=== PATIENT | female | born 1970 | race Caucasian/White ===

== ENCOUNTER 2016-11-23 10:28 | Inpatient (IN) | payer OTHER ==
--- NOTE | 2016-11-23 11:20 | EDPHY ---
H & P Stated Complaint: Sent by therapist:took 4 Valium last night to "numb myself" - Personal History LMP (Females 10-55): 1-7 Days Ago Current Tetanus Diphtheria and Acellular Pertussis (TDAP): Yes - Medical/Surgical History Hx Asthma: No Hx Chronic Respiratory Disease: No Hx Diabetes: No Hx Cardiac Disease: No Hx Renal Disease: No Hx Cirrhosis: No Hx Alcoholism: No Hx HIV/AIDS: No Hx Splenectomy or Spleen Trauma: No Other PMH: Anxiety, Depression, Anemia, Pneumothorax. Surgeries: chest tube right - Social History Smoking Status: Never smoked Time Seen by Provider: 11/23/16 10:41 HPI/ROS: CHIEF COMPLAINT: "Feeling depressed" HISTORY OF PRESENT ILLNESS: 45-year-old female history of depression anxiety disorder, remote history of suicidal attempt at age 18, arrives voluntarily to the emergency department via walking, states that last night she took for Valium tablets and drank alcohol "in order to numb the pain". This was not a suicide attempt. States that she received bad news yesterday has been experiencing increased anxiety and depression however she adamantly denies current or recent suicidal or homicidal ideation. She called her therapist this morning recommend she go to the ER for evaluation. No abdominal pain. No nausea or vomiting. No physical trauma. REVIEW OF SYSTEMS: A ten point review of systems was performed and is negative with the exception of the items mentioned in the HPI PAST MEDICAL & SURGICAL HISTORY: depression. Anxiety disorder. Hair pulling disorder. SOCIAL HISTORY:positive alcohol use last evening PHYSICAL EXAM (Prior to examination, patient consented to physical exam, hands were washed and my usual and customary physical exam procedures followed) 1) GENERAL: Well-developed, well-nourished, alert and oriented. Appears anxious . 2) HEAD: Normocephalic, atraumatic 3) HEENT: Pupils equal, round, reactive to light bilaterally. Sclera anicteric. 4) NECK: Full range of motion, no meningeal signs. 5) LUNGS: Clear auscultation bilaterally, no wheezes, no rhonchi, no retractions. 6) HEART: Regular rate and rhythm, no murmur, no heave, no gallop. 7) ABDOMEN: No guarding, no rebound, no focal tenderness, 8) MUSCULOSKELETAL: No peripheral edema or discoloration. 9) BACK: no visual or palpable abnormality. 10) SKIN: No rash, no petechiae. DIFFERENTIAL DIAGNOSIS: In no particular include but limited to suicidal ideation, homicidal ideation, depression, anxiety (Samson Hurtado) Constitutional: Initial Vital Signs Temperature (C) 36.8 C 11/23/16 10:29 Heart Rate 86 11/23/16 10:29 Respiratory Rate 18 11/23/16 10:29 Blood Pressure 156/107 H 11/23/16 10:29 O2 Sat (%) 97 11/23/16 10:29 O2 Delivery Mode Room Air Allergies/Adverse Reactions: amoxicillin Allergy (Mild, Verified 11/23/16 10:33) GI upset Home Medications: Medication Instructions Recorded Effexor Xr 225mg Tablet 225 mg PO HS 11/23/16 buPROPion XL [Wellbutrin Xl] 150 mg PO HS 11/23/16 lamOTRIGine [Lamotrigine] 200 mg PO HS 11/23/16 Medical Decision Making ED Course/Re-evaluation: 5:00 p.m.: Care turned over to Dr. Jostin Ibanez. Mental health elementary reading specialist currently evaluating patient (Samson Hurtado) 6:20 p.m. the patient has been accepted by [address] [facility]. They request that she has a small dose of metoprolol prior to transfer. Transfer paperwork completed (Jostin Ibanez) This patient was initially evaluated and managed by the physician computer lab assistant. I agree with the plan of care. I am the secondary supervising physician. (Mariely Villalta) - Data Points Laboratory Results: Laboratory Results 11/23/16 11:00 11/23/16 11:00 Medications Given: Discontinued Medications Metoprolol Succinate (Toprol Xl) 25 mg PO EDNOW ONE Stop: 11/23/16 18:24 Last Admin: 11/23/16 18:30 Dose: 25 mg Departure - Departure Disposition: [facility] IP Clinical Impression: Depression Qualifiers: Depression Type: other depression Qualified Code(s): F32.89 - Other specified depressive episodes Condition: Good
[2016-11-23 11:30] LABS: % IMMATURE GRANULYOCYTES 0.4 % (0.0-1.1); ABSOLUTE IMMATURE GRANULOCYTES 0.02 10^3/uL (0.00-0.10); ADD DIFF? NO; ADD MORPH? NO; ADD SCAN? NO; ATYPICAL LYMPHOCYTE FLAG 10 (0-99); FRAGMENT RBC FLAG 0 (0-99); HEMATOCRIT 39.3 % (38.0-47.0); HEMOGLOBIN 12.9 g/dL (12.6-16.3); LEFT SHIFT FLG 0 (0-99); LIPEMIA HEMOLYSIS FLAG 80 (0-99); MEAN CELL HEMOGLOBIN 27.9 pg (27.9-34.1); MEAN CELL HEMOGLOBIN CONCENTR. 32.8 g/dL (32.4-36.7); MEAN CELL VOLUME 85.1 fL (81.5-99.8); MEAN PLATELET VOLUME 12.1 fL (8.7-11.7); PLATELET CLUMPS FLAG 0 (0-99); PLATELET COUNT 183 10^3/uL (150-400); RED BLOOD CELL COUNT 4.62 10^6/uL (4.18-5.33); RED CELL DISTRIBUTION WIDTH 14.8 % (11.5-15.2)
[2016-11-23 11:33] LABS: ANION GAP 13 mEq/L (8-16); CALCIUM 9.7 mg/dL (8.5-10.4); CARBON DIOXIDE 20 mEq/l (22-31); CHLORIDE 111 mEq/L (97-110); CREATININE 0.8 mg/dL (0.6-1.0); ETHANOL SERUM < 10 mg/dL (0-10); GLOMERULAR FILTRATION RATE > 60; GLUCOSE 90 mg/dL (70-100); POTASSIUM 4.5 mEq/L (3.5-5.2); SALICYLATE < 1.0 mg/dL (2.0-20.0); SODIUM 144 mEq/L (134-144)
[2016-11-23] MEDS ORDERED: METOPROLOL SUCCINATE XR 25 MG TAB PO ONE (18:23)
[2016-11-23] MEDS ORDERED: NICOTINE POLACRILEX 2 MG GUM B PRN (21:03)
[2016-11-23] MEDS ORDERED: MAGNESIUM HYDROXIDE 30 ML UDCUP PO PRN (21:03)
[2016-11-23] MEDS ORDERED: ACETAMINOPHEN 325 MG TAB PO PRN (21:03)
[2016-11-23] MEDS ORDERED: MAG HYDROX/AL HYDROX/SIMETH 30 ML UDCUP PO PRN (21:03)
[2016-11-23] MEDS: VENLAFAXINE XR 75 MG CAP PO SCH (21:46)
[2016-11-23] MEDS: lamoTRIgine 100 MG TAB PO SCH (21:46)
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
[2016-11-24] MEDS ORDERED: PROMETHAZINE HCL 25 MG SUPPR PR PRN (14:32)
[2016-11-24] MEDS ORDERED: chlordiazePOXIDE 25 MG CAP PO PRN (14:32)
[2016-11-24] MEDS ORDERED: PROMETHAZINE HCL 25 MG TAB PO PRN (14:32)
[2016-11-24] MEDS ORDERED: THIAMINE HCL 100 MG TAB PO ONE (14:32)
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
[2016-11-24] MEDS: lamoTRIgine 100 MG TAB PO SCH (20:57)
[2016-11-24] MEDS: VENLAFAXINE XR 75 MG CAP PO SCH (20:58)
[2016-11-24] MEDS: buPROPion XL 150 MG TAB PO SCH (20:58)
[2016-11-24] MEDS ORDERED: lamoTRIgine 100 MG TAB PO SCH (21:00)
[2016-11-24] MEDS ORDERED: NON-FORMULARY NEW DRUG (Lamotrigine [Lamotrigine] 200 MG) PO SCH (21:00)
[2016-11-24] MEDS ORDERED: EFFEXOR 225 MG PO SCH (21:00)
[2016-11-24] MEDS ORDERED: VENLAFAXINE XR 75 MG CAP PO SCH (21:00)
--- NOTE | 2016-11-25 12:57 | SOAPPROG ---
SOAP Progress Note Assessment/Plan: Assessment: 11/25/16 12:48 Plan: 1. CCM - patient denies depression, denies SI/HI 2. Patient agrees to contact Dr. Kavitha Tolliver' office for a f/u appt. 3. Patient is interested in attending MH-IOP at [facility] outpatient clinic. She has an intake appt on 12/03/16 4. MD explained the importance of treating her alcohol use disorder, and suggested patient work with CAC on her addiction issues. She agreed. 5. Likely to d/c tomorrow if aftercare plan is finalized. Subjective: Met with patient and discussed with staff. Patient says she is feeling more "hopeful" and optimistic about her future. She spoke to her outpatient therapist last night. She says her therapist recommended DBT groups and said it was more important to focus on this than her alcohol use. MD explained that her alcohol use disorder was a primary contributor to her chronic low mood and made it more likely for her to feel hopeless and have thoughts of suicide. MD also explained that alcohol significantly impaired her judgment and lowered her inhibitions, therefore making it more likely for her to act on her suicidal thoughts. Therefore, MD recommended that treating her alcohol use disorder was of paramount importance in addition to whatever other treatment she participated in to improve her ability to feel better and function more effectively. MD stressed that you can't treat one (depression) without treating the other (substance use disorder). Patient said she understood. She also admitted she had minimized her alcohol use to both her psych MD and her therapist. MD went into detail about how alcohol interacts with psychotropic medications and the potential adverse effects from combining alcohol with prescription medications. MD also mentioned the effect of alcohol of the liver which decreases the liver's capacity to metabolism prescription meds. Patient said she would discuss these issues with her psych MD and be more forthcoming about her alcohol dependence. Patient denied any thoughts, plan or intent to harm herself or anyone else. Objective: Vital Signs Temp Pulse Resp BP Pulse Ox 36.4 C 81 14 117/81 H 99 11/25/16 06:15 11/25/16 06:15 11/25/16 06:15 11/25/16 06:15 11/25/16 06:15 MSE: Wearing street clothes, appropriately groomed. Affect: Euthymic Mood: "Good " TP: Linear, goal-directed TC: Denies AH/VH, no evidence of psychosis, denies SI/HI - Time Spent With Patient Time Spent With Patient: 25" - Pending Discharge Pending Discharge Within 24 Hours: Yes Pending Discharge Date: 11/26/16 (Patient needs to make f/u appt wtih Dr. Tolliver. CC is working on referral for CAC and intake for IOP.) Pending Discharge Time: 12:00 ICD10 Worksheet Patient Problems: Problems Problem Status Onset Alcohol use disorder, severe, dependence Acute Depression Acute - ICD10 Problem Qualifiers (1) Alcohol use disorder, severe, dependence
[2016-11-25 13:27] VITALS: O2SAT 97
[2016-11-25] MEDS: THIAMINE HCL 100 MG TAB PO SCH (16:34)
[2016-11-25] MEDS: MULTIVITAMINS 1 EACH TAB PO SCH (16:34)
[2016-11-25] MEDS: FOLIC ACID 1 MG TAB PO SCH (16:34)
[2016-11-25] MEDS: LORazepam 0.5 MG TAB PO PRN (17:13)
[2016-11-25] MEDS: buPROPion XL 150 MG TAB PO SCH (21:37)
[2016-11-25] MEDS: VENLAFAXINE XR 75 MG CAP PO SCH (21:37)
[2016-11-25] MEDS: lamoTRIgine 100 MG TAB PO SCH (21:37)
[2016-11-26] MEDS: LORazepam 0.5 MG TAB PO PRN (03:28)
[2016-11-26 08:48] VITALS: BP 133/89; PULSE 97; RESP 12; TEMP 97.8
[2016-11-26] MEDS: MULTIVITAMINS 1 EACH TAB PO SCH (09:41)
[2016-11-26] MEDS: THIAMINE HCL 100 MG TAB PO SCH (09:41)
[2016-11-26] MEDS: FOLIC ACID 1 MG TAB PO SCH (09:41)
--- NOTE | 2016-11-26 14:05 | BDS ---
[f rep st] BEHAVIORAL HEALTH DISCHARGE SUMMARY REASON FOR ADMISSION: This is a 45-year-old female who presented to [facility] ED per recommendation of her therapist, Kristie Yo. Therapist said she told the client to call her i f she was ever feeling suicidal. Per the therapist, the patient sent her a text in the middle of night on 11/22 saying she was thinking of killing herself. Therapist called the patient on 11/23 after seeing the text and recommended the patient go to the hospital for an evaluation. The patient says she was upset about an interaction with her sister. She received a text from her sister invit ing her to a birthday constitution party for another member of the family, even though it was the patient's day on the same day, and the patient was going to be out of town. The patient expressed feeling trung t this was deliberate, that the constitution party was planned on her birthday on purpose. The patient reported a strained relationship with her sister, whom she has not spoken to in the last 2 years. This was a precipitant for the patient taking four 10 mg Valium, one 10 mg Zyprexa, and drinking alcohol to "n umb myself out," per the patient. The patient denied taking the excessive amount of medications was a suicide attempt but reports that if she would have , it would have "been okay with me." ADMITTING DIAGNOSES: 1. Major depressive disorder, recurrent, severe. 2. Substance-induced mood disorder. 3. Alcohol use disorder, severe, dependent. 4. Rule out generalized anxiety disorder. 5. Psychosocial stressors include underemployment, financial problems, lack of social support, soci al isolation, strained relationship with family members. Admission physical examination was performed by Dr. Lexx Wallace. Please see his H and P for mor e details. ADMISSION LABS: Patient's white cell count was 4.62. Hemoglobin was 12.9. Hematocrit was 39.3. Pl atelet count was 183. Sodium was 144, potassium 4.5, chloride 111, BUN 17, creatinine 0.8, glucose 90. Calcium was 9.7. Salicylates and acetaminophen were both undetected. Her urine drug screen was positive for benzos, negative for all other substances. Blood alcohol level was less than 10. HOSPITAL COURSE: The patient was admitted to Behavioral Health Unit on an M1 hold. Upon admission, the patient denied that her ingestion of 4 mg tablets of Zyprexa, she states was not a suicide atte mpt. She said upon meeting with the MD the morning after admission, she says, "I'm feeling more hop eful." She states that she has been feeling "really well for a while" up until her most recent appo intment with her psychiatrist on 11/12/2016. She had it was really the text message from her sister that sent her "over the edge." She says the reason that she feels better now is because her parents recognize "how much pain I am in," and she says that she hopes that her relationship with her siste r will get better "now that my parents know the depth of how much my sister has hurt me, they will m oleg her be nicer to me." The patient says that one of her ways of coping is by drinking, which she h as been doing for approximately 15 years. She has not sought treatment for this since 2011. The pa leonora did disclose a fairly significant history of drinking large amounts of alcohol, which she said she has mentioned to her outpatient providers in the past, but says that she might not have been en tirely truthful with them about how much she drinks. She states that on a typical night, she consum es anywhere from 2-3 "large glasses" of wine. She says that on some occasions she will drink as muc h as a bottle a day. She drinks every day of the week, and that has been her pattern for the last 1 5 years. Her longest period of sobriety was 1 month in 2011 when she was in an IOP program in [facility]. She states that she has gone to AA meetings in the past between 2000 and 2007, and she attende d a weekly group therapy that was focused on addiction recovery at the suggestion of her then therap ist. She has not done any treatment for alcohol since 2011, despite continuing to use on a daily ba sis. The patient does have a long history of depression, which does seem to be, if not caused by, a t least significantly exacerbated by, her ongoing substance use disorder. She has been on multiple antidepressants. MD explained to the patient that alcohol was a potent depressogenic substance and that it was very difficult, if not impossible, to treat people with major depression or recurrent de pressive episodes even with medication as long as they continue to use alcohol. The MD explained th e risks, benefits, side effects, and the potential adverse effects of taking 3 different medications for depression while continuing to consume alcohol, that those medications are less effective becau se the alcohol competes in the liver for metabolism with the drugs, and also because the alcohol wor ks to cause depressive symptoms, which she is taking medication to try to improve. The patient marisela owledged that she understood the risks of continuing to consume alcohol and that the primary effect would be not only physical effects on her liver, but that it would have a significant effect on her mental state, as well as her mood, making it more likely that her depression will not resolve, despi te the risks she is taking by being on 3 antidepressant medications. During her treatment, the patient was continued on her outpatient regimen because despite the warnin gs from her psychiatrist about how the potential adverse affects of those medications, and particula rly the effect of Effexor on her blood pressure, and the interactions with alcohol, patient said trung t she wanted to be on that regimen. She felt that it was helpful, and that she would seek substance use treatment. Patient specifically requested DBT therapy since that was what her outpatient Kristie schneider, recommends. CONDITION ON DISCHARGE: Patient was stable. Her affect was euthymic. She was saying that she felt "more hopeful" and more optimistic about her future. She denied any thoughts, plans or intents to hurt herself. DISCHARGE MEDICATIONS: Include the patient's routine outpatient regimen that she came in on, includ ing Wellbutrin XL 150 mg p.o. daily, Effexor XR 225 mg p.o. daily, and Lamictal 200 mg p.o. daily. The patient was also given a multivitamin at time of discharge because of her alcohol use. DISCHARGE DIAGNOSES: 1. Major depressive disorder, recurrent, severe. 2. Substance-induced mood disorder. 3. Alcohol use disorder, severe, dependent. 4. Psychosocial stressors include underemployment, financial problems, lack of social support, soci al isolation, and strained relationship with family members. DISPOSITION: The patient left the hospital with friends, who were taking her out of town on a vacat ion. They were going to be with the patient and continue to supervise her and encourage her to foll ow up with her aftercare plan. FOLLOWUP: She has an appointment with Kristie Yo, her outpatient therapist, on December 10 at 11 :15, and she also has an intake appointment for the DBT IOP program at [facility] on December 03 at 1 p.m. The patient has called her outpatient psychiatrist, Soco horne, and is waiting to hear back for a followup appointment with her. LEGAL COURSE: The patient was converted to voluntary status with the expiration of her M1 hold. /[id number]/MODL
== END 2016-11-26 12:20 | disposition home or self-care (01) | DRG 885 ==
LOC: BBEH 19:20
PROVIDERS: ADMIT Psychiatry & Neurology Psychiatry; ATTEND Psychiatry & Neurology Psychiatry
CPT/HCPCS: 80305; G0480